=== PATIENT | female | born 1965 | race Caucasian/White ===

== ENCOUNTER → 2020-04-09 11:21 | Outpatient (CLI) | payer OTHER, SELFPAY ==
--- NOTE | ~2020-04-09 | MM_ITS ---
EXAMINATION: MM screening terrence BI w zi HISTORY: Screening TECHNIQUE: Craniocaudal and mediolateral oblique 3-D tomosynthesis images were obtained and synthetic 2-D images were generated. CAD analysis was submitted and interpreted. COMPARISON: Comparison to multiple prior studies sequentially, with oldest reviewed study dated 05/26. BREAST PARENCHYMAL COMPOSITION: The breasts are heterogeneously dense, which may obscure small masses . FINDINGS: There is a new focal area of architectural distortion in the outer aspect of the right pravin st on CC view. The left breast is stable without evidence for malignancy. IMPRESSION: 1. New focal architectural distortion lateral aspect of the right breast on CC view. 2. Additional mammographic views and possible breast ultrasound are recommended. BI-RADS Category 0: Incomplete: Needs additional imaging evaluation. Reviewed, dictated and finalized at location A. IMPRESSION: 1. New focal architectural distortion lateral aspect of the right breast on CC view. 2. Additional mammographic views and possible breast ultrasound are recommended . BI-RADS Category 0: Incomplete: Needs additional imaging evaluation.
== END ==
PROVIDERS: Visit Provider Obstetrics & Gynecology
DX: Z12.31 Encounter for screening mammogram for malignant neoplasm of breast (principal); R92.8 Other abnormal and inconclusive findings on diagnostic imaging of breast
CPT/HCPCS: 77063; 77067

== ENCOUNTER → 2020-04-24 08:43 | Outpatient (CLI) | payer OTHER, SELFPAY ==
--- NOTE | ~2020-04-24 | MMUS_ITS ---
EXAMINATION: MM diagnostic mammo unilat RT, US breast RT limited HISTORY: Right breast architectural distortion on screening mammogram TECHNIQUE: Additional 3-D tomosynthesis images of the right breast were performed and synthetic 2-D i mages were generated. CAD analysis was submitted and interpreted. High resolution limited right breas t ultrasound was performed. COMPARISON: 04/09/2020, 02/21/2019, 02/05/2018, 08/26/2016 FINDINGS: MAMMOGRAPHIC FINDINGS: There is persistent architectural distortion with an apparent central mass in the middle third of the outer breast at the 9:00 location 5.5 cm from the nipple best appreciated on the craniocaudal view ( craniocaudal tomosynthesis image 28/57). ULTRASOUND: There is a questionable 4 mm hypoechoic mass at the 11:00 location 5 cm from the nipple however this is difficult to appreciate in orthogonal scan planes. IMPRESSION: 1. Architectural distortion with apparent central mass in the outer right breast. 2. Tomosynthesis guided biopsy is recommended. BI-RADS category 4, suspicious findings. Reviewed, dictated and finalized at location A. ITUAL ADVISOR IMPRESSION: 1. Architectural distortion with apparent central mass in the outer right breas t. 2. Tomosynthesis guided biopsy is recommended. BI-RADS category 4, suspicious findings.
== END ==
PROVIDERS: Visit Provider Obstetrics & Gynecology
DX: R92.8 Other abnormal and inconclusive findings on diagnostic imaging of breast (principal)
CPT/HCPCS: 76642; 77065

== ENCOUNTER 2023-03-21 14:03 | Outpatient (CLI) | payer OTHER, SELFPAY ==
--- NOTE | ~2023-03-21 | US_ITS ---
US soft tissue head and neck INDICATION: Nontoxic thyroid nodule TECHNIQUE: Real-time sonographic images of the thyroid gland were obtained. COMPARISON: No prior studies for comparison. FINDINGS: The right thyroid lobe measures 3.4 x 1.3 x 1.2 cm. The left thyroid lobe measures 3.7 x 1 x 1.3 cm. There is normal echotexture and echogenicity throughout the thyroid gland. There are multi ple left thyroid nodules, largest measuring 9 x 5 x 5 mm being mixed cystic and solid, hypoechoic, wi cory than tall, smoothly marginated without echogenic foci, TR 3. Normal vascular flow is present. IMPRESSION: 1. Thyroid nodules, largest measuring 9 mm, TR 3, which does not meet sonographic criteria for biops y. Reviewed, dictated and finalized at location B. IMPRESSION: 1. Thyroid nodules, largest measuring 9 mm, TR 3, which does not meet sonograp hic criteria for biopsy.
== END 2023-03-21 14:04 | disposition home or self-care (01) ==
PROVIDERS: PCP Family Medicine; Visit Provider Physician Assistant
DX: E04.2 Nontoxic multinodular goiter (principal); R22.1 Localized swelling, mass and lump, neck
CPT/HCPCS: 76536

== ENCOUNTER 2024-04-19 12:30 | Outpatient (CLI) | payer OTHER, SELFPAY ==
--- NOTE | ~2024-04-19 | US_ITS ---
EXAMINATION: US thyroid DATE: 04/19/2024 13:00 INDICATION: Nontoxic single thyroid nodule. TECHNIQUE: Multiple ultrasound images of the thyroid were obtained. COMPARISON: Ultrasound 03/21/2023 FINDINGS: The right thyroid lobe measures 3.8 x 1.2 x 1.2 cm. The left thyroid lobe measures 4.3 x 1.2 x 1.5 c m. In the left thyroid lobe, there is a 10 mm mixed cystic and solid, isoechoic, wider than tall nod ule with ill-defined margin without echogenic foci (TI-RADS TR2). IMPRESSION: 1. Left thyroid nodule, likely not clinically significant. No follow-up is needed. Reviewed, dictated and finalized at location A. IMPRESSION: 1. Left thyroid nodule, likely not clinically significant. No follow-up is need ed.
== END 2024-04-19 12:31 | disposition home or self-care (01) ==
PROVIDERS: PCP Family Medicine; Visit Provider Family Medicine
DX: E04.1 Nontoxic single thyroid nodule (principal)
CPT/HCPCS: 76536

== ENCOUNTER 2024-05-12 13:13 | Emergency (ER) | payer OTHER, SELFPAY ==
--- NOTE | 2024-05-12 13:17 | ED.EYEPROB ---
HPI - Eye Problem General Chief complaint: Eye Problems Stated complaint: lt eye discomfort Time Seen by Provider: 05/12/24 13:17 Source: patient Mode of arrival: ambulatory Limitations: no limitations History of Present Illness HPI Narrative: Thom is a 58-year-old female patient presenting to the clinic today with complaints of left eye discomfort. She reports that she thinks she may have slept with a contact in her left eye last night. States that she took the right contact out and was attempting to take the left contact out and then could see so fell as though it may have fallen out on its own however she did go to sleep last night and now her her eye is irritated and red. Denies any discharge coming from the eye. Related Data Home Medications Medication Instructions Recorded Confirmed multivitamin (Daily Multi-Vitamin 1 tablet PO DAILY 08/05/19 05/12/24 tablet) omega 1-goc-uyb-fish oil 120 1 cap PO DAILY 11/02/21 05/12/24 mg-180 mg-500 mg capsule (Fish Oil) tamoxifen 10 mg tablet 10 mg PO BID 08/14/23 05/12/24 Allergies Allergy/AdvReac Type Severity Reaction Status Date / Time shellfish derived Allergy Unknown Vomiting Verified 05/12/24 13:28 Review of Systems Review of Systems: Pertinent positives per HPI. Patient denies any fever, chills, rash, headache, visual changes, dizziness, cough, runny nose, sore throat, shortness of breath, chest pain, palpitations, nausea, vomiting, diarrhea, constipation, abdominal pain, or any urinary issues. FORMERLY [facility], [facility] Past Medical History Medical History History of breast cancer Thyroid Nodule Vaginal delivery Wellness examination Surgical History Surgical History History of dilation and curettage History of foot surgery right History of lumpectomy of right breast History of partial mastectomy of right breast Family History Family History Mother Hypertension Cerebrovascular accident Grandparent Carcinoma of colon Sibling Carcinoma of colon Father Family history of Parkinson's disease Social History Social History Smoking status: Never smoker Second hand tobacco smoke exposure: No Alcohol intake: current Drinks per week: 4 Substance use: never Substance use type: does not use Lack of Transportation: No Lack of Food: Never True Current Housing: I Have Housing Concerned About Future Housing: No Difficulty Paying Gas/Electric Bills: No Difficulty Paying for Meds: No Currently Unemployed: No Education: Master's Degree or Higher Difficulty w/ Childcare or Family Care: No Living arrangements: with family Occupation/Education: occupation Gender identity (if verbalized by the patient): Female Sexual Orientation (if Verbalized by the Patient): Straight or Heterosexual Comments At the time of my signature, I reviewed and agree with the nursing past medical, surgical, social, and family history. There is no relevant family history pertinent to the patient complaint. Exam Narrative: General: Well-developed, well nourished, in no apparent distress Head: Normocephalic, atraumatic Eyes: Pupils equally round and reactive to light bilaterally, EOM intact, right sclera and conjunctive clear, left sclera and conjunctiva injected, no discharge, lids normal Wood's lamp exam was performed and no obvious sign of corneal abrasion was noted. No Cameron sign. Ears: TMs intact and clear, ear canals clear, no drainage, grossly hearing normal. Nose: Nares patent, no discharge, no inflammation, no sinus tenderness. Mouth: Oropharynx without lesions or masses, good dentition, MMM. Neck: Supple, trachea midline, no enlargement of anterior or posterior cervical nodes, no thyroid masses or goiter palpable. Cardio: Regular rate and rhythm, s1 and s2 normal, no murmur appreciated. Resp: Clear to auscultation bilaterally anteriorly and posteriorly, no rhonchi, rales, wheezing or rubs Course Course Emergency Course: Portions of this record may have been created with voice recognition software. Level of Care: Express Care Visit Vital Signs Vital signs: Vital signs reviewed Procedures Other Procedure Procedure 1: Other Procedure: Two drops of tetracaine topical anesthetic was instilled with good anesthesia into the left eye. Fluorescein stain of the left eye was performed without uptake of dye. No epithelial defect was noted. NO, ulcer or dendritic lesions. Upper lid was everted and saline soaked cotton-tipped applicator was used and a eye lash was removed. No retained contact was seen, No lesions were noted. Nn Cameron sign. Normal saline irrigation eye solution was performed and the patient tolerated the procedure well, no adverse reaction or complications. MDM - Eye Problem MDM Narrative Medical decision making narrative: At the time of visit patient is resting comfortably on the exam table. Patient appears to be nontoxic. Procedures: Wood's lamp exam was performed and there was no sign of corneal abrasion. A saline soaked cotton tip applicator was used and removed a eye lash in the left upper corner the lid for patient was having discomfort. Patient's sclera and conjunctiva injected. Will place the patient on antibiotics eyedrops. Plan: I suspect patient had eyelash foreign body in the left eye causing eye irritation. Was not able to find contact at this time. Will place patient on ofloxacin eyedrops and have her follow-up with her primary care doctor as needed. Supportive measures were discussed with the patient and they voiced understanding discharge instructions and agrees to treatment plan. Return precautions reviewed Differential Diagnosis Differential diagnosis: Likely corneal abrasion, conjunctivitis, acute iritis, hyphema, periorbital cellulitis, subconjunctival hemorrhage, glaucoma, corneal ulcer, ruptured globe and other (COVID) Discharge Plan Discharge Clinical Impression: Irritation of eye Foreign body in eye Qualifiers: Encounter type: initial encounter Laterality: left Qualified Code(s): T15.92XA - Foreign body on external eye, part unspecified, left eye, initial encounter Patient Disposition: Home, Self-Care Condition: Stable Instructions: Antibiotic Form, Eye Pain (ED) Additional Instructions: Practice good hand washing techniques Avoid touching eyes Instill eyedrops as prescribed May irrigate your eye using the eye stream wash as needed May use warm moist washcloth to help remove eye discharge If eyes are matted shut-do not pry eyes open-use a warm moist cloth to loosen matting and wipe matter away from eye May take Tylenol/Motrin as needed for pain or fever May take Benadryl as needed for itching Follow-up with your PCP in 3-5 days if symptoms persist or sooner if they worsen Go to the emergency room if you develop any fever that is not controlled by Tylenol or Motrin, loss of vision, eye pain, increase eye swelling,visual changes, headache, confusion, lethargy, weakness, chest pain, or shortness of breath. Prescriptions: New ofloxacin 0.3 % drops See Rx Instructions .ROUTE .COMPLEX Qty: 10 0RF Rx Instructions: put 1-2 drps into affected eye(s) every 2-4 h x 2 days, then 1-2 drps 4 times/day days 3-7 No Action multivitamin [Daily Multi-Vitamin] Tablet 1 tablet PO DAILY tamoxifen 10 mg tablet 10 mg PO BID Fish Oil 120-180-500 mg capsule 1 cap PO DAILY Follow-up/Referrals: Avtar Guerrero MD [Primary Care Provider] - Time of Disposition: 13:47 Quality NIHSS Nursing Documentation ED NIHSS nursing documentation: reviewed/agree
[2024-05-12 13:29] VITALS: BP 138/78; PULSE 79; RESP 16; TEMP 36.6; O2SAT 100
== END 2024-05-12 13:50 | disposition home or self-care (01) ==
PROVIDERS: Emergency Provider Nurse Practitioner Family; PCP Family Medicine
DX: T15.12XA Foreign body in conjunctival sac, left eye, initial encounter (principal); W44.8XXA Other foreign body entering into or through a natural orifice, initial encounter; Z85.3 Personal history of malignant neoplasm of breast
CPT/HCPCS: 65205; 99213; A9270; G0463

== ENCOUNTER 2024-06-12 11:16 | Outpatient (CLI) | payer OTHER, SELFPAY ==
--- NOTE | ~2024-06-12 | MM_ITS ---
EXAMINATION: MM screening terrence BI w zi HISTORY: Screening TECHNIQUE: Craniocaudal and mediolateral oblique 3-D tomosynthesis images were obtained and synthetic 2-D images were generated. CAD analysis was submitted and interpreted. COMPARISON: Comparison to multiple prior studies sequentially, with oldest reviewed study dated 08/2016. BREAST PARENCHYMAL COMPOSITION: Not dense: There are scattered areas of fibroglandular density. FINDINGS: There is architectural distortion in the upper outer quadrant of the right breast, consiste nt with previous lumpectomy site for breast cancer. There is a possible new mass in the subareolar lo cation of the right breast on MLO view. The left breast is stable without evidence for malignancy. IMPRESSION: 1. Possible new obscured right breast mass in the subareolar location. 2. Additional mammographic views and possible breast ultrasound are recommended. BI-RADS Category 0: Incomplete: Needs additional imaging evaluation. Reviewed, dictated and finalized at location B. O CHECKER IMPRESSION: 1. Possible new obscured right breast mass in the subareolar location. 2. Additional mammographic views and possible breast ultrasound are recommended . BI-RADS Category 0: Incomplete: Needs additional imaging evaluation.
== END 2024-06-12 11:17 | disposition home or self-care (01) ==
LOC: MICIMG 11:16
PROVIDERS: PCP Family Medicine; Visit Provider Nurse Practitioner Family
DX: Z12.31 Encounter for screening mammogram for malignant neoplasm of breast (principal); R92.8 Other abnormal and inconclusive findings on diagnostic imaging of breast
CPT/HCPCS: 77063; 77067

== ENCOUNTER 2024-07-02 09:45 | Outpatient (CLI) | payer OTHER, SELFPAY ==
--- NOTE | ~2024-07-02 | MMUS_ITS ---
EXAMINATION: MM diagnostic terrence RT w zi, US breast RT limited HISTORY: Possible subareolar mass in the right breast TECHNIQUE: Additional 3-D tomosynthesis images of the right breast were performed and synthetic 2-D i mages were generated. CAD analysis was submitted and interpreted. High resolution Limited right breas t ultrasound was performed. COMPARISON: Comparison to multiple prior studies sequentially, with oldest reviewed study dated 03/26. BREAST PARENCHYMAL COMPOSITION: Dense: The breasts are heterogeneously dense, which may obscure small masses FINDINGS: MAMMOGRAPHIC FINDINGS: There are no discrete masses or architectural distortion in the subareolar/periareolar aspect of the right breast with spot compression or mediolateral views. Due to increased density at this location u ltrasound recommended. There is stable architectural distortion in the upper outer quadrant of the ri ght breast, consistent with previous lumpectomy site. ULTRASOUND: Limited right breast ultrasound: Normal heterogeneous echotexture without focal solid or cystic mass. IMPRESSION: 1. No evidence for malignancy in the right breast. 2. Routine yearly screening mammogram and regular clinical breast examination are recommended. BI-RADS Category 2: Benign finding(s). Reviewed, dictated and finalized at location B. ATING THEATRE TECHNICIAN IMPRESSION: 1. No evidence for malignancy in the right breast. 2. Routine yearly screening mammogram and regular clinical breast examination a re recommended. BI-RADS Category 2: Benign finding(s).
== END 2024-07-02 09:46 | disposition home or self-care (01) ==
LOC: MICIMG 09:46
PROVIDERS: PCP Family Medicine; Visit Provider Obstetrics & Gynecology
DX: R92.8 Other abnormal and inconclusive findings on diagnostic imaging of breast (principal)
CPT/HCPCS: 76642; 77061; 77065; G0279